=== PATIENT | male | born 1980 | race African-American/Black ===

== ENCOUNTER 2018-09-26 08:41 | Emergency (ER) | payer OTHER ==
[2018-09-26 08:47] VITALS: RESP 18
[2018-09-26] MEDS ORDERED: IBUPROFEN 600 MG TAB PO STA (08:56)
[2018-09-26] MEDS ORDERED: IPRATROPIUM-ALBUTEROL 3 ML NEB INHALATION STA (08:56)
[2018-09-26] MEDS ORDERED: ACETAMINOPHEN TAB 325 MG TAB PO STA (08:56)
--- NOTE | 2018-09-26 09:08 | XR ---
EXAMINATION TYPE: XR chest 2V DATE OF EXAM: 09/26/2018 COMPARISON: NONE HISTORY: History of asthma with cough. TECHNIQUE: Frontal and lateral views of the chest are obtained. FINDINGS: There is no focal air space opacity, pleural effusion, or pneumothorax seen. The cardiac silhouette size is within normal limits. The osseous structures are intact. IMPRESSION: No suspicious acute pulmonary process.
--- NOTE | 2018-09-26 09:12 | ED ---
URI HPI - General Chief Complaint: Upper Respiratory Infection Stated Complaint: Cough Time Seen by Provider: 09/26/18 08:53 Source: patient, RN notes reviewed Mode of arrival: ambulatory Limitations: no limitations - History of Present Illness Initial Comments: 38-year-old male presents emergency Department with chief complaint of cough congestion fever. Patient states that the symptoms started last 24 hours. He states is very achy he has not taken a recent Tylenol Motrin for his fever. He does have underlying asthma. Patient states he cannot stop coughing. Patient states cough is nonproductive. He has mild nasal congestion mild sore throat denies any neck pain or neck stiffness. - Related Data Previous Rx's Medication Instructions Recorded Albuterol Sulfate [Proair Hfa] 1 - 2 puff INHALATION Q4HR PRN #1 09/26/18 inhaler Ibuprofen [Motrin] 600 mg PO Q8HR PRN #30 tab 09/26/18 Oseltamivir [Tamiflu] 75 mg PO Q12HR #10 cap 09/26/18 Allergies Allergy/AdvReac Type Severity Reaction Status Date / Time No Known Allergies Allergy Verified 09/26/18 09:37 Review of Systems ROS Statement: Those systems with pertinent positive or pertinent negative responses have been documented in the HPI. ROS Other: All systems not noted in ROS Statement are negative. Past Medical History Past Medical History: Asthma History of Any Multi-Drug Resistant Organisms: None Reported Past Surgical History: Orthopedic Surgery Additional Past Surgical History / Comment(s): neck surgery 2017 Past Psychological History: No Psychological Hx Reported Smoking Status: Current some day smoker Past Alcohol Use History: Occasional Past Drug Use History: Marijuana General Exam Limitations: no limitations General appearance: alert, in no apparent distress Head exam: Present: atraumatic, normocephalic, normal inspection Eye exam: Present: normal appearance, PERRL, EOMI. Absent: scleral icterus, conjunctival injection, periorbital swelling ENT exam: Present: normal exam, normal oropharynx, mucous membranes moist Neck exam: Present: normal inspection, full ROM. Absent: tenderness, meningismus, lymphadenopathy Respiratory exam: Present: wheezes. Absent: normal lung sounds bilaterally, respiratory distress, rales, rhonchi, stridor Cardiovascular Exam: Present: regular rate, normal rhythm, normal heart sounds. Absent: systolic murmur, diastolic murmur, rubs, gallop, clicks GI/Abdominal exam: Present: soft, normal bowel sounds. Absent: distended, tenderness, guarding, rebound, rigid Neurological exam: Present: alert, oriented X3, CN II-XII intact Skin exam: Present: warm, dry, intact, normal color. Absent: rash Course Vital Signs 09/26/18 09/26/18 09/26/18 08:44 09:13 09:18 Temperature 100.2 F H Pulse Rate 96 96 90 Respiratory 18 18 Rate Blood Pressure 144/77 O2 Sat by Pulse 100 Oximetry 09/26/18 09:25 Temperature Pulse Rate 94 Respiratory Rate Blood Pressure O2 Sat by Pulse Oximetry Medical Decision Making - Medical Decision Making 38-year-old male presented from it for fever cough congestion. Patient is influenza A positive chest x-ray obtained no acute abnormality. Patient is improved after DuoNeb treatment. Patient we discharged with albuterol inhaler, ibuprofen, Tamiflu. Return parameters were discussed. - Lab Data Lab Results 09/26/18 Range/Units 09:10 Influenza Type A RNA Detected H (Not Detectd) Influenza Type B (PCR) Not Detected (Not Detectd) Disposition Clinical Impression: Influenza Disposition: HOME SELF-CARE Condition: Stable Instructions (If sedation given, give patient instructions): Influenza (ED) Additional Instructions: Please return to the Emergency Department if symptoms worsen or any other concerns. Prescriptions: Albuterol Sulfate [Proair Hfa] 1 - 2 puff INHALATION Q4HR PRN #1 inhaler PRN Reason: difficulty in breathing Ibuprofen [Motrin] 600 mg PO Q8HR PRN #30 tab PRN Reason: Pain Oseltamivir [Tamiflu] 75 mg PO Q12HR #10 cap Is patient prescribed a controlled substance at d/c from ED?: No Referrals: None,Stated [Primary Care Provider] - 1-2 days Time of Disposition: 10:11
[2018-09-26 10:10] VITALS: BP 134/74; PULSE 89; TEMP 99
== END 2018-09-26 10:20 | disposition home or self-care (01) ==
LOC: EC 08:41
DX: J10.1 Influenza due to other identified influenza virus with other respiratory manifestations (principal); F17.200 Nicotine dependence, unspecified, uncomplicated
CPT/HCPCS: 71046; 87502; 94640; 99284